=== PATIENT | female | born 1940 | race Asian ===

== ENCOUNTER 2017-06-08 21:14 | Emergency (ER) | payer MEDICARE, OTHER ==
[~2017-06-08] VITALS: Ht 157.5 cm; Wt 50.0 kg
[~2017-06-08 21:14] MED LIST: ANTIHYPERTENSIVE PO
[2017-06-08] MEDS ORDERED: ASPI-1182 PO (21:46)
[2017-06-08] MEDS ORDERED: LISI-662 PO (21:46)
[2017-06-08] MEDS ORDERED: RALO60 PO (21:46)
[2017-06-08 22:03] LABS: HEMATOCRIT 41.3 % (36-46); HEMOGLOBIN 13.9 g/dL (12.0-16.0); MEAN CORPUSCULAR HEMOGLOBIN 29.9 pg (26.0-34.0); MEAN CORPUSCULAR HGB CONC 33.6 G/dL (31.0-37.0); MEAN CORPUSCULAR VOLUME 89 fL (80-100); PLATELET COUNT (AUTO) 281 K/uL (150-450); RED BLOOD CELL COUNT(AUTO) 4.65 MIL/uL (4.00-5.20); RED CELL DISTRIBUTION WIDTH 13.9 % (11.5-14.5); WHITE BLOOD COUNT (AUTO) 19.7 K/uL (4.5-11.0)
[2017-06-08] MEDS ORDERED: MAG HYDROX/AL HYDROX/SIMETH ES 30 ML SUSPENSION UDCUP PO ONE (22:15)
[2017-06-08] MEDS ORDERED: SODIUM CHLORIDE 0.9% 1,000 ML IV ONE (22:15)
[2017-06-08] MEDS ORDERED: ONDANSETRON HCL 4 MG/2 ML VIAL IVP ONE (22:15)
[2017-06-08] MEDS ORDERED: ACETAMINOPHEN 500 MG TABLET PO ONE (22:15)
[2017-06-08 22:20] LABS: CALCIUM, TOTAL 9.7 mg/dL (8.8-10.5); CREATININE 1.45 mg/dL (0.60-1.30); POTASSIUM 3.4 mmol/L (3.5-5.1)
[2017-06-08 22:25] LABS: ALBUMIN 4.4 g/dL (3.4-5.0); BILIRUBIN,TOTAL 0.5 mg/dL (0.1-1.0); TOTAL PROTEIN, SERUM 8.6 g/dL (6.4-8.2)
[2017-06-08 23:09] LABS: BAND NEUTROPHILS % (MANUAL) 29 % (1-5); LYMPHOCYTES % (MANUAL) 11 % (22-44); TOTAL CELLS COUNTED 100
[2017-06-08 23:24] LABS: APPEARANCE,URINE CLEAR (CLEAR); GLUCOSE, URINE (UA) NEGATIVE (NEGATIVE); KETONES,URINE TRACE mg/dL (NEGATIVE); LEUKOCYTE ESTERASE ,URINE TRACE (NEGATIVE); OCCULT BLOOD,URINE NEGATIVE (NEGATIVE); PROTEIN,URINE NEGATIVE (NEGATIVE)
[2017-06-08 23:26] LABS: ADD UA MICROSCOPIC YES
[2017-06-08 23:34] LABS: SQUAMOUS EPITHELIAL CELL,UR Few /LPF (None Seen)
[2017-06-08 23:35] LABS: RBC,URINE 0-2 /HPF (0-2)
[2017-06-09] MEDS ORDERED: SODIUM CHLORIDE 0.9% 1,000 ML IV ONE
[2017-06-09 02:21] VITALS: BP 126/66
== END 2017-06-09 02:32 | disposition home or self-care (01) ==
LOC: EMS 21:15
DX: K29.70 Gastritis, unspecified, without bleeding (principal); N39.0 Urinary tract infection, site not specified; E86.0 Dehydration; E87.6 Hypokalemia; E78.00 Pure hypercholesterolemia, unspecified; I10 Essential (primary) hypertension; Z90.12 Acquired absence of left breast and nipple; Z79.82 Long term (current) use of aspirin
CPT/HCPCS: 36415; 74176; 76700; 80053; 81001; 83690; 84484; 85025; 87077; 87086; 87186; 93005; 96361; 96374; 99285; J2405; J7030 ×2

== ENCOUNTER 2023-07-02 17:53 | Emergency (ER) | payer MEDICARE, OTHER ==
[~2023-07-02] VITALS: Ht 154.9 cm; Wt 52.3 kg
[~2023-07-02 17:53] MED LIST changes: -ANTIHYPERTENSIVE PO; +ASPI-1444 PO; +LISI-894 PO; +RALO60 PO
[2023-07-02 18:41] VITALS: BP 136/84; PULSE 84; RESP 18; TEMP 98.6
[2023-07-02] MEDS ORDERED: RABIES VACCINE, HUMAN DIPLOID/PF 2.5 UNITS/ML VIAL IM. ONE (18:45)
[2023-07-02] MEDS ORDERED: RABIES IMMUNE GLOBULIN/PF 150 UNIT/ML 10 ML VIAL IM. ONE (18:45)
[2023-07-02] MEDS ORDERED: AMOX TR/POT CLAV 875 MG/125 MG TABLET PO ONE (19:15)
[2023-07-02] MEDS ORDERED: AMOX1TAB16 PO (19:49)
== END 2023-07-02 20:51 | disposition home or self-care (01) ==
LOC: EMS 17:54
DX: S61.051A Open bite of right thumb without damage to nail, initial encounter (principal); E78.00 Pure hypercholesterolemia, unspecified; I10 Essential (primary) hypertension; Z90.12 Acquired absence of left breast and nipple; Z98.890 Other specified postprocedural states; W54.0XXA Bitten by dog, initial encounter; Y93.89 Activity, other specified; Y92.89 Other specified places as the place of occurrence of the external cause; Y99.8 Other external cause status
CPT/HCPCS: 90375; 90471; 90472; 90675; 99284

== ENCOUNTER 2023-07-04 10:27 | Emergency (ER) | payer MEDICARE, OTHER ==
[~2023-07-04] VITALS: Ht 149.9 cm; Wt 50.0 kg
[~2023-07-04 10:27] MED LIST changes: +AMOX1TAB16 PO
[2023-07-04 10:34] VITALS: TEMP 97.9
[2023-07-04] MEDS ORDERED: RABIES VACCINE, HUMAN DIPLOID/PF 2.5 UNITS/ML VIAL IM. ONE (10:45)
[2023-07-04 11:44] VITALS: BP 111/63; PULSE 74; RESP 16
== END 2023-07-04 12:27 | disposition home or self-care (01) ==
LOC: EMS 10:27
DX: S61.250D Open bite of right index finger without damage to nail, subsequent encounter (principal); E78.00 Pure hypercholesterolemia, unspecified; I10 Essential (primary) hypertension; Z90.12 Acquired absence of left breast and nipple; Z98.890 Other specified postprocedural states; Z23 Encounter for immunization
CPT/HCPCS: 90471; 90675; 99281

== ENCOUNTER 2023-07-08 08:31 | Emergency (ER) | payer MEDICARE, OTHER ==
[~2023-07-08] VITALS: Ht 149.9 cm; Wt 50.0 kg
[2023-07-08 08:41] VITALS: TEMP 98.4
[2023-07-08] MEDS ORDERED: RABIES VACCINE, HUMAN DIPLOID/PF 2.5 UNITS/ML VIAL IM. ONE (09:00)
[2023-07-08 09:50] VITALS: BP 110/54; PULSE 72; RESP 18
== END 2023-07-08 09:51 | disposition home or self-care (01) ==
LOC: EMS 08:48
DX: S61.250D Open bite of right index finger without damage to nail, subsequent encounter (principal); E78.00 Pure hypercholesterolemia, unspecified; I10 Essential (primary) hypertension; Z90.12 Acquired absence of left breast and nipple; Z23 Encounter for immunization; Z98.890 Other specified postprocedural states; W64.XXXD Exposure to other animate mechanical forces, subsequent encounter
CPT/HCPCS: 90471; 90675; 99281

== ENCOUNTER 2023-07-15 08:45 | Emergency (ER) | payer MEDICARE, OTHER ==
[~2023-07-15] VITALS: Ht 152.4 cm; Wt 52.3 kg
[2023-07-15 08:49] VITALS: TEMP 98
[2023-07-15] MEDS ORDERED: RABIES VACCINE, HUMAN DIPLOID/PF 2.5 UNITS/ML VIAL IM. ONE (10:45)
[2023-07-15 11:30] VITALS: BP 113/53; PULSE 66; RESP 16
== END 2023-07-15 12:58 | disposition home or self-care (01) ==
LOC: EMS 08:49
DX: Z23 Encounter for immunization (principal); E78.00 Pure hypercholesterolemia, unspecified; I10 Essential (primary) hypertension; Z90.12 Acquired absence of left breast and nipple; Z98.890 Other specified postprocedural states
CPT/HCPCS: 90471; 90675; 99281